=== PATIENT | female | born 1995 | race Caucasian/White ===

== ENCOUNTER → 2020-05-26 | Outpatient (CLI) | payer OTHER ==
--- NOTE | 2020-05-26 14:17 | US ---
EXAMINATION TYPE: Transabdominal DATE OF EXAM: 05/26/2020 1:43 PM COMPARISON: NONE CLINICAL HISTORY: Z36 confrim dates. Confirm Dates EXAM PERFORMED: Transabdominal (TA) EXAM MEASUREMENTS: GESTATIONAL AGE / DATING Physician Established: (9 weeks/5 days) EDC: 12/24/2020 Dates by LMP: (9 weeks/5 days) EDC: 12/24/2020 Dates by First Scan: No prior Dates by Current Scan for: (10 weeks/1 days) EDC: 12/21/2020 MATERNAL ANATOMY Uterus: 11.1 x 6.8 x 8.8 cm Right Ovary: 3.4 x 2.1 x 2.6 cm Left Ovary: 1.9 x 2.1 x 1.8 cm Post CDS / Adnexa: wnl Presence of free fluid: No Presence of corpus luteal cyst: Right Ovary= 2.1 x 1.8 x 1.5 cm Presence of subchorionic bleed: No GESTATION / SURVEY CRL: 3.3 cm (10 weeks/1 days) MSD: wnl Yolk Sac (normal less than 6mm): 4mm Heart Rate: 166 bpm Rhythm: Normal IUP: Viable IUP Nuchal Translucency 10-14wks (normal less than 3mm): 1mm Single, viable IUP/ No abnormality visualized at this time IMPRESSION: 1. Single intrauterine gestation estimated 10 weeks 1 day gestation based on the crown-rump length. C ardiac activity measures 166 bpm.
== END | disposition home or self-care (01) ==
LOC: RADUSWWP 13:23
PROVIDERS: ATTEND Obstetrics & Gynecology
DX: Z36.89 Encounter for other specified antenatal screening (principal); Z3A.10 10 weeks gestation of pregnancy
CPT/HCPCS: 76801; 76813

== ENCOUNTER → 2020-11-23 | Outpatient (CLI) | payer OTHER ==
--- NOTE | 2020-11-23 11:35 | US ---
EXAMINATION TYPE: US OB >= 14 wk fetus DATE OF EXAM: 11/23/2020 COMPARISON: US CLINICAL HISTORY: O36.63X0 LARGE FOR DATES Large for dates. . Exam limited, third trimester. TECHNIQUE: Transabdominal (TA) GESTATIONAL AGE / DATING Physician Established: (35 weeks/4 days) EDC: 12/24/2020 Dates by LMP: (35 weeks/4 days) EDC: 12/24/2020 Dates by First Scan: (36 weeks/0 days) EDC: 12/21/2020 Dates by Current Scan: (34 weeks/3 days) EDC: 01/01/2021 SURVEY IUP: Single PLACENTA: Posterior. Appears heterogeneous. PREVIA: No Previa ALIS: 15.36 cm Normal CERVICAL LENGTH (transabdominal: norm > 3.0cm): 3.9 cm BIOMETRY PRESENTATION: Vertex LIE: Longitudinal BPD: 8.38 cm 33 weeks / 5 days HC: 31.76 cm 35 weeks / 5 days AC: 30.89 cm 34 weeks / 6 days FL: 6.68 cm 34 weeks / 3 days ESTIMATED WEIGHT IN GRAMS: 2490 grams ESTIMATED WEIGHT IN LBS/OZ: 5 lbs. 8 oz. WEIGHT PERCENTAGE BASED ON ESTABLISHED DATES: 18.3% HC/AC: 1.03 Normal FL/AC: 21.61 Normal HEART RATE: 155 bpm RHYTHM: Normal IMPRESSION: Single viable intrauterine .
== END | disposition home or self-care (01) ==
LOC: RADUSWWP 10:26
PROVIDERS: ATTEND Obstetrics & Gynecology
DX: O36.63X0 Maternal care for excessive fetal growth, third trimester, not applicable or unspecified (principal); Z3A.33 33 weeks gestation of pregnancy
CPT/HCPCS: 76805

== ENCOUNTER 2020-12-12 01:33 | Outpatient (CLI) | payer OTHER ==
[2020-12-12 04:13] VITALS: BP 118/81; PULSE 95; RESP 16; TEMP 97.4
--- NOTE | 2020-12-28 17:04 | P.MSEPDOC ---
Presenting Problems - Arrival Data Date of Arrival on Unit: 12/12/20 Time of Arrival on Unit: 01:33 Mode of Transport: Ambulatory - Complaint OB-Reason for Admission/Chief Complaint: Possible Onset of Labor Comment: Patient presents to triage stating that she has been uriel for weeks but. they have increased in intensity over the past 2 hours. Patient states that they are 3 minutes apart. Patient denies complications with herself and baby this pregnacy. Patient states her water may be broken Medical History - Information : 4 Para: 3 Term: 3 : 0 Abortions: Spontaneous or Elective: 0 Number of Living Children: 3 - Gestational Age Gestational Age by LAISHA (wks/days): 38 Weeks and 2 Days - History Complications: Smoker Review of Systems - Review of Systems Constitutional: No problems Breast: No problems ENT: No problems Cardiovascular: No problems Respiratory: No problems Gastrointestinal: No problems Genitourinary: No problems Musculoskeletal: No problems Neurological: No problems Skin: No problems Vital Signs - Temperature Temperature: 97.4 F Temperature Source: Temporal Artery Scan - Pulse Right Brachial Pulse Rate: 95 Pulse Assessment Method: Automatic Cuff - Respirations Respiratory Rate: 16 Oxygen Delivery Method: Room Air - Blood Pressure Right Arm Blood Pressure: 118/81 Blood Pressure Mean: 93 Blood Pressure Source: Automatic Cuff Medical Screen Scoring - Cervical Exam Dilation (cm): 3 Effacement (%): 50 Station: -2 Membranes: Intact - Uterine Contractions Frequency From (mins): 3 Frequency To (mins): 6 Duration From (seconds): 60 Duration To (seconds): 80 Intensity: Moderate Resting: Soft to palpation - Assessment - Baby A Baseline FHR: 125 Heart Rate - NICHD Category: Category I (Normal) Physician Notification - Physician Notified Physician Notified Date: 12/12/20 Physician Notified Time: 02:50 Physician: Travis Francois New Order Received: Yes - Notification Comment Comment: Cervix unchanged after one hour, despite regular contractions. Patient stayed another hour, ambulated in hallway and cervix still remain unchanged. Reactive NST, vitals WNL. Patient wishes to be discharged. Maternal Triage Index - Urgent/Priority 2 Urgent Priority 2: Yes Provider Notified: Travis Francois Provider Notified Time: 02:50 Criteria Met for Priority 2: >34 weeks with regular contractions and multiple gestation Disposition - Disposition OB Disposition: Discharge to home Discharge Date: 12/12/20 Discharge Time: 04:00 I agree with the RN Medical Screening Exam: Yes Case reviewed; plan agreed upon as documented in EMR&OBIX.: Yes Diagnosis: FALSE LABOR AT OR AFTER 37 COMPLETED WEEKS OF GESTATION
== END 2020-12-12 04:00 | disposition home or self-care (01) ==
LOC: FBPOP 01:33
PROVIDERS: ATTEND Obstetrics & Gynecology
DX: O47.1 False labor at or after 37 completed weeks of gestation (principal); O99.333 Smoking (tobacco) complicating pregnancy, third trimester; F17.200 Nicotine dependence, unspecified, uncomplicated; Z3A.38 38 weeks gestation of pregnancy
CPT/HCPCS: 59025; 84112; G0463; 99213

== ENCOUNTER 2020-12-12 08:35 | Inpatient (IN) | payer OTHER ==
[2020-12-12] MEDS ORDERED: ZOLPIDEM 5 MG TAB PO PRN (08:57)
[2020-12-12] MEDS ORDERED: HYDROCORTISONE 2.5% RECTAL CREAM 30 GM TUBE RECTAL PRN (08:57)
[2020-12-12] MEDS ORDERED: SIMETHICONE 80 MG CHEWABLE PO PRN (08:57)
[2020-12-12] MEDS ORDERED: diphenhydrAMINE 50 MG CAP PO PRN (08:57)
[2020-12-12] MEDS ORDERED: diphenhydrAMINE 50 MG/ML 1 ML VIAL IVP PRN ×2 (08:57)
[2020-12-12] MEDS ORDERED: BENZOCAINE/MENTHOL SPRAY 1 GM/SPRAY AEROSOL TOPICAL PRN (08:57)
[2020-12-12] MEDS ORDERED: LANOLIN CREAM 5 GM TUBE TOPICAL PRN (08:57)
[2020-12-12] MEDS ORDERED: ACETAMINOPHEN TAB 325 MG TAB PO PRN (08:57)
[2020-12-12] MEDS ORDERED: diphenhydrAMINE 25 MG CAP PO PRN (08:57)
[2020-12-12] MEDS ORDERED: OXYTOCIN 30 UNITS/500 ML NS 30 UNIT in SALINE 1 500ML.BAG IV SCH (09:00)
--- NOTE | 2020-12-12 09:10 | P.HPOB ---
History of Present Illness H&P Date: 12/12/20 Chief Complaint: Vaginal delivery at home This is a 25 [place] female 4 para 3 with an estimated date of confinement of 12/24/2020, estimated gestational age of 38-2/7 weeks, who presented to labor and delivery via ambulance after delivering at home at approximately 7:22 AM. She was seen in triage earlier this morning and was sent home when she made no change after 2 hours and was 3 cm. Upon arriving at home, her contractions became stronger and she had a strong urge and delivered at home. The placenta delivered shortly afterwards in the toilet. She stated she had a lot of bleeding initially after delivery. Baby is pink and crying upon arrival. She is complaining of cramping and soreness on her vaginal area. labs: Hepatitis B surface antigen-negative RPR nonreactive Beverly-immune Blood type-A+ Antibody screen-negative HIV-nonreactive Hemoglobin-4.7 Random glucose-82 Obstetrical ultrasound-normal anatomy Platelet count initially was normal and did decline to approximately 85 by the end of her . She has been followed by hematology. Obstetrical history: . History of 3 vaginal deliveries at term. Gynecologic history: No history of sexual transmitted diseases. Social history: She is single. She works part-time as a headwaiter/headwaitress. Review of Systems Constitutional: Denies chills, Denies fever Eyes: denies blurred vision, denies pain Ears, nose, mouth and throat: Denies headache, Denies sore throat Cardiovascular: Denies chest pain, Denies shortness of breath Respiratory: Denies cough Gastrointestinal: Reports abdominal pain (Cramping) Genitourinary: Reports pelvic pain, Reports (Immediately ) Musculoskeletal: Reports low back pain Integumentary: Denies pruritus, Denies rash Neurological: Denies numbness, Denies weakness Psychiatric: Denies anxiety, Denies depression Past Medical History Additional Past Medical History / Comment(s): Thrombocytopenia History of Any Multi-Drug Resistant Organisms: None Reported Past Surgical History: Appendectomy Additional Past Surgical History / Comment(s): [place] teeth Past Anesthesia/Blood Transfusion Reactions: No Reported Reaction Past Psychological History: No Psychological Hx Reported Smoking Status: Current every day smoker Past Alcohol Use History: None Reported Past Drug Use History: None Reported - Past Family History Mother History Unknown: Yes Family Medical History: No Reported History Medications and Allergies Home Medications Medication Instructions Recorded Confirmed Type Pnv No.95/Ferrous Fum/Folic AC 1 tab PO DAILY 12/12/20 12/12/20 History [ Multivitamin Tablet] Allergies Allergy/AdvReac Type Severity Reaction Status Date / Time No Known Allergies Allergy Verified 12/12/20 01:48 Exam Osteopathic Statement: *. No significant issues noted on an osteopathic structural exam other than those noted in the History and Physical/Consult. Gen.: Well-developed well-nourished female in mild distress due to recent delivery HEENT: Within normal limits Heart: Regular rate and rhythm Lungs: Clear to auscultation bilaterally Abdomen: Soft, with fundus firm and nontender. Perineum: Small abrasions are noted bilaterally on the periurethral area but no active bleeding is noted. Uterine fundus is firm and approximately 50 mL of blood clot were expressed from the uterine cavity with a gloved hand. No placental tissue is noted. Uterus is firm after removing clots. No active bleeding is noted. Extremities: Negative Homans Assessment and Plan (1) Status post vaginal delivery Current Visit: Yes Status: Acute Code(s): [id number] - SNOMED Code(s): 272 [id number] (2) Thrombocytopenia affecting Current Visit: Yes Status: Acute Code(s): O99.119 - OTH DIS OF BLD/BLD-FORM ORG/IMMUN MECHNSM COMP PREG,UNSP TRI; D69.6 - THROMBOCYTOPENIA, UNSPECIFIED SNOMED Code(s): 459316604 Plan: Admission for care. Will obtain stat CBC and type and screen. Will observe bleeding. We will control pain with pain medication.
--- NOTE | 2020-12-12 09:14 | P.PROBDLV ---
Vaginal Delivery Note - . Vaginal Delivery Note: Patient delivered vaginally at home this morning at approximately 7:22 AM a viable female . She states the infant was initially not crying but did start crying shortly after. Baby was moving all extremities. Initially baby was dusky in color but did pink up after EMS arrived approximately 10 minutes after delivery. Patient states she did deliver the placenta in the toilet shortly after delivery and she did have quite a bit of blood loss right at that time. Inspection of the perineum upon arrival to the hospital reveals some mild bilateral periurethral abrasions but no active bleeding. Fundus is firm, mildly tender. Approximately 50 mL of blood clot is removed from the endometrial cavity with a gloved hand. Uterus firmed up and is 2 cm below the umbilicus. Both mother and baby are stable at this time. Estimated blood loss since arrival is approximately 50 mL. Placenta will be sent to pathology due to maternal history of thrombocytopenia.
[2020-12-12 09:16] VITALS: RESP 16
[2020-12-12] MEDS: IBUPROFEN 600 MG TAB PO PRN ×3 (09:27→21:37)
[2020-12-12 10:13] LABS: Basophils % (A) 0 %; Eosinophils % (A) 0 %; HCT 32.2 % (34.0-46.0); HGB 10.8 gm/dL (11.4-16.0); Lymphocytes % (A) 6 %; MCH 30.9 pg (25.0-35.0); MCHC 33.5 g/dL (31.0-37.0); MCV 92.1 fL (80.0-100.0); Mean Platelet Volume 10.5; Monocytes # (A) 0.5 k/uL (0-1.0); Monocytes % (A) 3 %; Neutrophils # (A) 13.8 k/uL (1.3-7.7); Neutrophils % (A) 90 %; Platelet Count 102 k/uL (150-450); Poikilocytosis Slight; RBC 3.49 m/uL (3.80-5.40); RDW 14.3 % (11.5-15.5); WBC 15.4 k/uL (3.8-10.6)
[2020-12-12] MEDS: SENNOSIDES-DOCUSATE SODIUM 1 EACH TAB PO SCH (20:19)
[2020-12-12] MEDS ORDERED: NICOTINE 14MG/24HR PATCH TRANSDERM SCH (21:00)
[2020-12-13] MEDS: IBUPROFEN 600 MG TAB PO PRN (04:09)
[2020-12-13 06:52] LABS: Basophils % (A) 0 %; Eosinophils # (A) 0.1 k/uL (0-0.7); Eosinophils % (A) 1 %; HCT 27.7 % (34.0-46.0); HGB 9.4 gm/dL (11.4-16.0); Lymphocytes # (A) 1.5 k/uL (1.0-4.8); Lymphocytes % (A) 13 %; MCH 30.4 pg (25.0-35.0); MCHC 33.8 g/dL (31.0-37.0); MCV 89.9 fL (80.0-100.0); Mean Platelet Volume 10.8; Monocytes # (A) 0.5 k/uL (0-1.0); Monocytes % (A) 4 %; Neutrophils # (A) 9.6 k/uL (1.3-7.7); Neutrophils % (A) 81 %; Poikilocytosis Slight; RBC 3.08 m/uL (3.80-5.40); RDW 14.3 % (11.5-15.5); WBC 11.9 k/uL (3.8-10.6)
[2020-12-13 08:00] LABS: Platelet Count 90 k/uL (150-450)
[2020-12-13 08:01] LABS: Polychromasia Present
[2020-12-13] MEDS: SENNOSIDES-DOCUSATE SODIUM 1 EACH TAB PO SCH (08:09)
[2020-12-13 08:33] VITALS: BP 114/76; PULSE 81; TEMP 98.2
--- NOTE | 2020-12-13 09:09 | P.DS ---
Providers Date of admission: 12/12/20 08:35 Expected date of discharge: 12/13/20 Attending physician: Morena Waldron Primary care physician: Stated None - Discharge Diagnosis(es) (1) Status post vaginal delivery Current Visit: Yes Status: Acute (2) Thrombocytopenia affecting Current Visit: Yes Status: Acute Hospital Course: This is a 25 y.o. female, 4, para 3, at 38-2/7 weeks, EDC of 12/14/2020 who presented to L&D after delivering at home at approximately 7:22 am. She also delivered the placenta shortly after the fetus. Both baby and monther are doing well now. Bleeding is minimal. Pain is well controlled with oral pain medication. She is breast-feeding. Vital signs are stable. Abdomen is soft with fundus firm and non-tender. Extremities show negative Ronan's. Impression is status post precipitous vaginal delivery at home, day #1. Plan is to discharge home today. She does have a history of thrombocytopenia and platelets were 102 on arrival and 90 today. She was not on any steroids. She will be given a prescription for ibuprofen. She is advised to follow up in the office in 6 weeks for a visit and is advised to call the office if she has any questions or concerns prior to that time. Procedures: Precipitous spontaneous vaginal delivery of viable female infant at home on 12/12/2020 Patient Condition at Discharge: Stable Plan - Discharge Summary New Discharge Prescriptions: New Ibuprofen [Motrin] 600 mg PO Q6HR PRN #60 tab PRN Reason: Mild Pain (Scale 1 To 3) Continue Pnv No.95/Ferrous Fum/Folic AC [ Multivitamin Tablet] 1 tab PO DAILY Discharge Medication List Pnv No.95/Ferrous Fum/Folic AC [ Multivitamin Tablet] 1 tab PO DAILY 12/12/20 [History] Ibuprofen [Motrin] 600 mg PO Q6HR PRN #60 tab 12/13/20 [Rx] Follow up Appointment(s)/Referral(s): Morena Waldron DO [Doctor of Osteopathic Medicine] - 6 Weeks Activity/Diet/Wound Care/Special Instructions: Activity as tolerated. May shower but no tub baths for 2 weeks. No intercourse for 6 weeks. Diet as tolerated. Call the office with any questions or concerns prior to appointment time. You should stay away from anyone other than your immediate family for the next 2 weeks to prevent infection for your infant. Discharge Disposition: HOME SELF-CARE
== END 2020-12-13 10:20 | disposition home or self-care (01) | DRG 806 ==
LOC: 4FBP 08:35
PROVIDERS: ADMIT Obstetrics & Gynecology; ATTEND Obstetrics & Gynecology
PROC: 10E0XZZ Delivery of Products of Conception, External Approach (ICD-10-PCS; principal; 2020-12-12)
DX: O62.3 Precipitate labor (principal); O99.12 Other diseases of the blood and blood-forming organs and certain disorders involving the immune mechanism complicating childbirth; Z37.0 Single live birth; D69.6 Thrombocytopenia, unspecified; O71.82 Other specified trauma to perineum and vulva; F17.210 Nicotine dependence, cigarettes, uncomplicated; O99.334 Smoking (tobacco) complicating childbirth; Z3A.38 38 weeks gestation of pregnancy
CPT/HCPCS: 59025; 84112; 85025; 86850; 86900; 86901; 88307; 99213